=== PATIENT | male | born 1965 | race Caucasian/White ===

== ENCOUNTER → 2017-12-12 | Outpatient (CLI) | payer OTHER | LOC: CAT 10:34 | DX: Z13.6 Encounter for screening for cardiovascular disorders (principal) ==

== ENCOUNTER → 2018-05-26 | Outpatient (CLI) | payer OTHER | LOC: ULTRA 07:49 | DX: K83.9 Disease of biliary tract, unspecified (principal); R16.2 Hepatomegaly with splenomegaly, not elsewhere classified ==